=== PATIENT | male | born 1975 | race Hispanic/Latino ===

== ENCOUNTER 2017-09-15 16:26 | Emergency (ER) | payer MEDICARE, MEDICAID | END 2017-09-15 18:44 | disposition home or self-care (01) | LOC: ERS 16:26 | DX: K02.9 Dental caries, unspecified (principal); K03.81 Cracked tooth; F41.9 Anxiety disorder, unspecified; F31.9 Bipolar disorder, unspecified; F20.9 Schizophrenia, unspecified; F17.210 Nicotine dependence, cigarettes, uncomplicated | CPT/HCPCS: 99406 ==

== ENCOUNTER 2019-12-28 10:51 | Observation (INO) | payer MEDICAID, MEDICARE ==
[2019-12-28] MEDS ORDERED: Morphine 4 MG/ML VIAL ONE (11:30)
[2019-12-28] MEDS ORDERED: Ondansetron ODT 4 MG TAB ONE (11:30)
[2019-12-28] MEDS ORDERED: Ondansetron PF 4 MG/2 ML Vial ONE (11:31)
[2019-12-28 11:41] LABS: Bilirubin Negative (Negative); Blood, Urine Negative (Negative); Clarity Turbid (Clear); Glucose, Urine (Dipstick) Normal (Negative); Leukocyte Negative Leu/uL (Negative); Nitrite Negative (Negative); Protein, Urine (Dipstick) Negative (Neg-Trace); Urobilinogen Normal mg/dL (Less than 2)
[2019-12-28 11:52] LABS: ALT (SGPT) 16 U/L (8-55); AST (SGOT) 22 U/L (5-34); Albumin 4.2 g/dL (3.5-5.0); Alkaline Phosphatase 93 U/L (40-110); Anion Gap 13 mmol/L (10-20); BUN (Urea Nitrogen) 11 mg/dL (8.9-20.6); Bilirubin, Total 2.8 mg/dL (0.2-1.2); Calc. Creatinine Clearance 0 mL/min (70-130); Calcium 9.3 mg/dL (7.8-10.44); Carbon Dioxide 21 mmol/L (22-29); Chloride 108 mmol/L (98-107); Estimated GFR-MDRD Greater than 90; Globulin 3.1 g/dL (2.4-3.5); Glucose 120 mg/dL (70-105); Lipase 22 U/L (8-78); Protein, Total 7.3 g/dL (6.0-8.3); Sodium 138 mmol/L (136-145)
[2019-12-28 11:53] LABS: Hemoglobin 16.3 g/dL (14.0-18.0); Mean Corpuscular Hemoglobin 35.2 pg (27.0-31.0); Platelet Count 42 thou/uL (130-400); RBC Distribution Width 11.8 % (11.5-14.5); Red Blood Cell (RBC) Count 4.63 mill/uL (4.70-6.10); White Blood Cell (WBC) Count 4.2 thou/uL (4.8-10.8)
[2019-12-28 12:11] LABS: Band 11 % (5-11); Lymphocytes 16 % (21-51); MDiff Complete? YES; Monocytes 4 % (0-10); Neutrophil 67 % (42-75); Platelet Morphology Comment Appears Decreased; Polychromasia SLIGHT = 2-3 cells (100X) (0-2/hpf); Reactive Lymphocytes 2 % (0-10)
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
[2019-12-28] MEDS ORDERED: Iopamidol-370 76% 500 ML 1 ML ONE (12:30)
[2019-12-28] MEDS ORDERED: Benzocaine 20% Spray 60 ML CAN ONE (13:06)
[2019-12-28 13:42] LABS: INR-International Normal Ratio 1.4; PTT 33.7 SEC (22.9-36.1); Prothrombin Time 16.7 SEC (12.0-14.7)
--- NOTE | 2019-12-28 14:16 | RAD ---
KUB: 12/28/2019 COMPARISON: 11/03/2005 FINDINGS: Abdominal pain, history of bowel obstruction, evaluate nasogastric tube FINDINGS: There is gaseous distention of the stomach. The distal tip of a nasogastric tube overlies t he gas-filled stomach with the side-port in the region of the gastroesophageal junction. Recommend advancing the nasogastric tube. There is residual contrast media within the renal collecting system o n the left and within the urinary bladder. There are prominent gas-filled loops of small bowel within the right lower quadrant, better assessed on recent CT examination. IMPRESSION: KUB as detailed above.
[2019-12-28] MEDS ORDERED: Ondansetron PF 4 MG/2 ML Vial IVP PRN (15:19)
[2019-12-28] MEDS: Morphine 2 MG/ML SYRINGE SLOW IVP PRN ×2 (16:03→20:26)
[2019-12-28 18:21] VITALS: BMI 28.3
[2019-12-28] MEDS: Pantoprazole 40 MG VIAL IVP SCH (20:27)
--- NOTE | 2019-12-28 20:31 | RAD ---
KUB: 12/28/19 COMPARISON: 12/28/19. HISTORY: Repositioning of nasogastric tube. FINDINGS: The nasogastric tube has been advanced when compared to the prior study performed earlier on 12/28/19. There is improved gaseous distention of small bowel within the mid right abdomen and there is improv ed gaseous distention of the stomach. IMPRESSION: Interval advancement of nasogastric tube. POS: BOLA
[2019-12-28] MEDS ORDERED: Heparin 5,000 UNITS/ML VIAL SC SCH (21:00)
[2019-12-28] MEDS: Sodium Chloride 0.9% 1,000 ML IV SCH (21:37)
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
[2019-12-29] MEDS: Morphine 2 MG/ML SYRINGE SLOW IVP PRN ×2 (01:54→13:26)
[2019-12-29 06:03] LABS: Band 2 % (5-11); Eosinophils 2 % (0-10); Hemoglobin 14.8 g/dL (14.0-18.0); Lymphocytes 28 % (21-51); MDiff Complete? YES; Mean Corpuscular HGB CONC 35.3 g/dL (32.0-36.0); Mean Corpuscular Hemoglobin 34.8 pg (27.0-31.0); Mean Corpuscular Volume 98.5 fL (78.0-98.0); Monocytes 6 % (0-10); Neutrophil 60 % (42-75); Platelet Count 39 thou/uL (130-400); Platelet Morphology Comment Appears Decreased; RBC Distribution Width 11.8 % (11.5-14.5); Reactive Lymphocytes 2 % (0-10); Red Blood Cell (RBC) Count 4.26 mill/uL (4.70-6.10); White Blood Cell (WBC) Count 4.1 thou/uL (4.8-10.8)
[2019-12-29] MEDS: Pantoprazole 40 MG VIAL IVP SCH ×2 (08:46→20:04)
[2019-12-29] MEDS: Sodium Chloride 0.9% 1,000 ML IV SCH ×2 (12:31→20:07)
--- NOTE | 2019-12-29 20:34 | PDOC.HOSPP ---
- Subjective Encounter Date: 12/29/19 Encounter Time: 10:00 Subjective: no overnight events. In the morning, passed gas. later in the afternoon, had a normal bowel movement. Advanced diet to clear liquid. Has no complaints. - Objective Vital Signs & Weight: Vital Signs (12 hours) Temp Pulse Resp BP Pulse Ox 12/29/19 15:45 98.5 F 72 16 120/76 96 12/29/19 11:40 98.4 F 80 14 118/79 96 Weight Admit Weight 192 lb Weight 192 lb I&O: 12/28/19 12/29/19 12/30/19 06:59 06:59 06:59 Intake Total 1975 1920 Output Total 1205 1075 Balance 770 845 Result Diagrams: 12/29/19 05:26 12/28/19 11:21 Hospitalist ROS - Review of Systems Constitutional: denies: fever, chills, sweats, weakness, malaise, other Respiratory: denies: cough, dry, shortness of breath, hemoptysis, SOB with excertion, pleuritic pain, sputum, wheezing, other Cardiovascular: denies: chest pain, palpitations, orthopnea, paroxysmal noc. dyspnea, edema, light headedness, other Gastrointestinal: reports: abdominal pain. denies: nausea, vomiting, diarrhea, constipation, melena, hematochezia, other Genitourinary: denies: dysuria, frequency, incontinence, hematuria, retention, other - Medication Medications: Active Medications Generic Name Dose Route Start Last Admin Trade Name Freq PRN Reason Stop Dose Admin Sodium Chloride 1,000 mls @ 75 mls/hr 12/28/19 21:00 12/29/19 20:07 Normal Saline 0.9% IV 1,000 mls .[id number] ERIKA Administration Morphine Sulfate 2 mg 12/28/19 15:19 12/29/19 13:26 Morphine SLOW IVP 2 mg Q4H PRN Administration Pain Ondansetron HCl 4 mg 12/28/19 15:19 12/28/19 16:01 Zofran IVP 4 mg Q6H PRN Administration Nausea/Vomiting Pantoprazole Sodium 40 mg 12/28/19 21:00 12/29/19 20:04 Protonix IVP 40 mg Q12HR ERIKA Administration - Exam General Appearance: NAD, awake alert Heart: RRR, no murmur, no gallops, no rubs Respiratory: CTAB, no wheezes, no rales, no ronchi Gastrointestinal: soft, non-tender, non-distended, normal bowel sounds Gastrointestinal - other findings: ventral hernia approximately 5cm diameter, easily reducible Extremities: no edema Skin - other findings: multiple healed scars in the abdominal and perineal areas Psychiatric: normal affect, normal behavior, A&O x 3 Hosp A/P - Plan #Small bowel obstruction (resolved) -patient had flatus in AM, bowel movement early PM -remove NGT -start clear liquid, advance as tolerated; remove NGT -likely DC 12/29 otherwise management unchanged
[2019-12-29] MEDS ORDERED: traZODone HCl 150 MG TAB PO PRN (21:07)
[2019-12-30 05:26] LABS: Anion Gap 9 mmol/L (10-20); BUN (Urea Nitrogen) 8 mg/dL (8.9-20.6); Calc. Creatinine Clearance 190 mL/min (70-130); Calcium 8.4 mg/dL (7.8-10.44); Carbon Dioxide 23 mmol/L (22-29); Chloride 109 mmol/L (98-107); Estimated GFR-MDRD Greater than 90; Glucose 85 mg/dL (70-105); Magnesium 1.8 mg/dL (1.6-2.6); Potassium 3.8 mmol/L (3.5-5.1); Sodium 137 mmol/L (136-145)
[2019-12-30 08:10] LABS: Band 2 % (5-11); Hemoglobin 13.9 g/dL (14.0-18.0); Lymphocytes 56 % (21-51); MDiff Complete? YES; Mean Corpuscular HGB CONC 36.2 g/dL (32.0-36.0); Mean Corpuscular Hemoglobin 35.5 pg (27.0-31.0); Mean Corpuscular Volume 98.1 fL (78.0-98.0); Mean Platelet Volume 8.6 fL (7.4-10.4); Neutrophil 42 % (42-75); Platelet Count 33 thou/uL (130-400); Platelet Morphology Comment Appears Decreased; RBC Distribution Width 11.7 % (11.5-14.5); Red Blood Cell (RBC) Count 3.92 mill/uL (4.70-6.10); White Blood Cell (WBC) Count 3.2 thou/uL (4.8-10.8)
[2019-12-30] MEDS: Gabapentin 300 MG CAP PO SCH ×2 (08:33→15:56)
[2019-12-30] MEDS ORDERED: Aripiprazole 10 MG TAB PO SCH (09:00)
[2019-12-30 12:20] VITALS: BP 116/73; TEMP 98.3
[2019-12-30] MEDS: Sodium Chloride 0.9% 1,000 ML IV SCH (14:33)
[2019-12-30] MEDS ORDERED: Mirtazapine 30 MG TAB PO SCH (21:00)
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
== END 2019-12-30 15:57 | disposition home or self-care (01) ==
LOC: ERS 10:51 → SURG A 12:58
PROVIDERS: ADMIT Internal Medicine; ATTEND Internal Medicine
DX: K56.609 Unspecified intestinal obstruction, unspecified as to partial versus complete obstruction (principal); K74.60 Unspecified cirrhosis of liver; F17.210 Nicotine dependence, cigarettes, uncomplicated; F41.9 Anxiety disorder, unspecified; F31.9 Bipolar disorder, unspecified; F20.9 Schizophrenia, unspecified; Z79.899 Other long term (current) drug therapy; Z90.79 Acquired absence of other genital organ(s); Z98.890 Other specified postprocedural states
CPT/HCPCS: 36415; 74018; 74177; 80048; 80053; 81003; 83690; 83735; 85007; 85025; 85027; 85610; 85730; 87077; 87086; 87186; 96361; 96374; 96375; 96376; C9113; G0378; J2270; J2405; Q0162; Q9967

== ENCOUNTER 2022-05-17 07:30 | Emergency (ER) | payer MEDICAID, SELFPAY | END 2022-05-17 08:03 | disposition home or self-care (01) | LOC: ERS 07:30 | DX: L30.9 Dermatitis, unspecified (principal); F17.210 Nicotine dependence, cigarettes, uncomplicated | CPT/HCPCS: 99282 ==

== ENCOUNTER 2023-11-02 22:38 | Emergency (ER) | payer OTHER, MEDICAID ==
[2023-11-02 23:34] LABS: #Monocytes 0.7 thou/uL (0.11-0.59); #Neutrophils 5.7 thou/uL (1.40-6.50); %Basophils 0.1 % (0.0-1.0); %Eosinophils 0.2 % (0.0-10.0); %Lymphocytes 19.4 % (21.0-51.0); %Monocytes 8.8 % (0.0-10.0); %Neutrophils 71.1 % (42.0-75.0); Hemoglobin 14.8 g/dL (14.0-18.0); Mean Corpuscular Hemoglobin 35.3 pg (27.0-31.0); Mean Corpuscular Volume 95.5 fl (78.0-98.0); RBC Distribution Width 12.4 % (11.5-14.5); Red Blood Cell (RBC) Count 4.19 mill/uL (4.70-6.10)
[2023-11-02 23:42] LABS: Platelet Count 71 10x3/uL (130-400)
[2023-11-02 23:46] LABS: Amphetamine Not Detected (NotDetected); Barbiturates Screen Not Detected (NotDetected); Benzodiazepine Screen Not Detected (NotDetected); Cocaine Metabolite Screen Detected (NotDetected); Methadone Not Detected (NotDetected); Methamphetamine Not Detected (NotDetected); Opiate Screen Not Detected (NotDetected); Oxycodone Screen Not Detected (NotDetected); Phencyclidine (PCP) Not Detected (NotDetected); THC/Cannabinoid Screen Not Detected (NotDetected); Tricyclic Screen Not Detected (NotDetected)
[2023-11-02 23:51] LABS: Acetaminophen Less than 10 mcg/mL (10.0-30.0); Alcohol Less than 10.0 mg/dL (Less than 10); Salicylate Less than 8.0 mg/dL (15.0-30.0)
[2023-11-02 23:54] LABS: Bacteria/HPF None Seen HPF (None Seen); Bilirubin Negative (Negative); Blood, Urine Negative (Negative); CAUTI Indications for Culture Alt mental st,lethar; Clarity Clear (Clear); Glucose, Urine (Dipstick) Normal (Negative); Ketone, Urine 10 mg/dL (Negative); Leukocyte Negative Leu/uL (Negative); Nitrite Negative (Negative); Protein, Urine (Dipstick) 20 mg/dL (Neg-Trace); RBC/HPF 0-3 HPF (0-3); Specific Gravity, Urine 1.026 (1.002-1.036); Squamous Epithelial None Seen HPF (0-3); Urobilinogen Normal mg/dL (Less than 2); pH, Urine 5.5 (5.0-9.0)
[2023-11-02 23:56] LABS: Carbamazepine-Tegretol Less than 1.9 ug/mL (4.0-12.0)
[2023-11-02 23:57] LABS: Urine Culture Reflex No No
== END 2023-11-03 05:45 | disposition left against medical advice (07) ==
LOC: ERS 22:38
DX: F22 Delusional disorders (principal); F17.210 Nicotine dependence, cigarettes, uncomplicated
CPT/HCPCS: 36415; 80156; 80306; 80307; 81001; 85025; 99285